=== PATIENT | female | born 1965 | race Caucasian/White ===

== ENCOUNTER 2019-01-02 21:18 | Emergency (ER) | payer BC, SELFPAY ==
[2019-01-02] MEDS ORDERED: AMOX/K CLAV 875 MG TAB ONE (21:55)
[2019-01-02] MEDS ORDERED: TETANUS & DIPHTHERIA TOX,ADULT 0.5 ML VIAL ONE (21:55)
[2019-01-02] MEDS ORDERED: LIDOCAINE 1% MPF 5 ML VIAL ONE (21:57)
--- NOTE | 2019-01-02 21:58 | ER ---
Nurse's Notes [facility] Name: Sofi Mg Age: 53 yrs Sex: Female : 1965 Arrival Date: 01/02/2019 Time: 21:22 Bed 20 Private MD: Diagnosis: Bitten by dog Presentation: 01/02 21:20 Presenting complaint: EMS states: patient had a dog bite on left arm (own dog). the dog rr5 from her neighbor and her dog got into fight she tried to stop them she was bit by her own dog. 21:20 Transition of care: patient was not received from another setting of care. Onset of rr5 symptoms was January 02, 2019. Risk Assessment: Do you want to hurt yourself or someone else? Patient reports no desire to harm self or others. Initial Sepsis Screen: Does the patient meet any 2 criteria? No. Patient's initial sepsis screen is negative. Does the patient have a suspected source of infection? No. Patient's initial sepsis screen is negative. Care prior to arrival: Medication(s) given: toradol. 21:20 Method Of Arrival: EMS: [facility] rr5 21:20 Acuity: FERNANDO 3 rr5 Triage Assessment: 21:20 Bite description: bite sustained to left upper arm is from animal, by a dog, animal rr5 information: vaccination(s) is current. 21:20 General: Appears in no apparent distress. comfortable, Behavior is calm, cooperative, rr5 appropriate for age. 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 - Social history:: Smoking status: Patient/guardian denies using tobacco, Patient/guardian denies using alcohol, street drugs. - Ebola Screening: : Patient negative for fever greater than or equal to 101.5 degrees Fahrenheit, and additional compatible Ebola Virus Disease symptoms Patient denies exposure to infectious person Patient denies travel to an Ebola-affected area in the 21 days before illness onset. Screenin:20 Abuse screen: Denies threats or abuse. Denies injuries from another. Nutritional rr5 screening: No deficits noted. Tuberculosis screening: No symptoms or risk factors identified. Fall Risk None identified. Total Greene Fall Scale indicates No Risk (0-24 pts). Assessment: 21:20 General: Appears in no apparent distress. comfortable, Behavior is calm, cooperative, rr5 appropriate for age. 21:20 Pain: Complains of pain in left upper arm Pain does not radiate. Pain currently is 3 rr5 out of 10 on a pain scale. Quality of pain is described as aching, Pain began suddenly, Is intermittent. Neuro: Level of Consciousness is awake, alert, obeys commands, Oriented to person, place, time, situation, Appropriate for age. Cardiovascular: Capillary refill < 3 seconds Patient's skin is warm and dry. Respiratory: Airway is patent Respiratory effort is even, unlabored, Respiratory pattern is regular, symmetrical. GI: No signs and/or symptoms were reported involving the gastrointestinal system. : No signs and/or symptoms were reported regarding the genitourinary system. EENT: No signs and/or symptoms were reported regarding the EENT system. Derm: Skin is intact, Skin is pink, warm \T\ dry. lacerated wound left upper arm. Musculoskeletal: Capillary refill < 3 seconds, Range of motion: intact in all extremities. Injury Description: Bite sustained to left upper arm caused by a dog, is from animal, was sustained 2-4 hours ago. 21:36 Reassessment: DWAIN lopez informed over the phone for the incident. rr5 22:25 Reassessment: Patient appears in no apparent distress at this time. Patient is alert, rr5 oriented x 3, equal unlabored respirations, skin warm/dry/pink. discharge instruction given and explained without complaints made. Patient states feeling better. Patient states symptoms have improved. Vital Signs: 21:30 BP 108 / 69; Pulse 92; Resp 17; Temp 97; Pulse Ox 98% ; Weight 77.11 kg; Height 5 ft. 3 rr5 in. (160.02 cm); Pain 3/10; 21:55 BP 89 / 53; Pulse 73; Resp 17; Pulse Ox 99% ; rr5 22:08 BP 107 / 63; Pulse 75; Resp 17; Pulse Ox 100% ; Pain 0/10; rr5 22:30 BP 105 / 60; Pulse 70; Resp 16; Pulse Ox 99% on R/A; rr5 21:30 Body Mass Index 30.11 (77.11 kg, 160.02 cm) rr5 21:55 placed on trendelenburg position. rr5 ED Course: 21:20 Arm band placed on. rr5 21:20 Patient has correct armband on for positive identification. Bed in low position. Call rr5 light in reach. 21:22 Patient arrived in ED. rr5 21:27 [facility]C [facility]. kb 21:27 Eric Pendleton MD is Attending Physician. kb 21:30 Triage completed. rr5 21:30 Maintain EMS IV. Dressing intact. Good blood return noted. Site clean \T\ dry. Gauge \T\ rr 5 site: G 18 right AC. 21:35 Baudilio Guillen RN is Primary Nurse. rr5 21:46 Assist provider with laceration repair on left upper inner arm. that was 2.5 cm. or rr5 less using sutures. Set up tray. Performed by Ania CHAHAL Dressed with 4X4s, Kerlix, Neosporin, Patient tolerated well. 22:30 IV discontinued, intact, bleeding controlled, No redness/swelling at site. Pressure rr5 dressing applied. Administered Medications: 21:44 Drug: Tetanus-Diphtheria Toxoid Adult 0.5 ml {[employer]: [employer]. Exp: rr5 09/04/2022. Lot #: [id number]. } Route: IM; Site: right deltoid; 22:25 Follow up: Response: No adverse reaction rr5 21:45 Drug: Lidocaine (1 %) 1 vials {Note: given by ania.} Volume: 20 ml; Route: rr5 Infiltration; 22:25 Follow up: Response: No adverse reaction rr5 21:45 Drug: Augmentin 875 mg Route: PO; rr5 22:25 Follow up: Response: No adverse reaction rr5 Outcome: 21:58 Discharge ordered by . kb 22:35 Discharged to home ambulatory. rr5 22:35 Condition: stable 22:35 Discharge instructions given to patient, family, Instructed on discharge instructions, follow up and referral plans. medication usage, wound care, Demonstrated understanding of instructions, follow-up care, medications, wound care, Prescriptions given X 1. 22:38 Patient left the ED. rr5 Signatures: Ania Salazar FNP-C FNP-Ckb Roque, Raymond RN RN rr5 Corrections: (The following items were deleted from the chart) 21:47 21:46 Assist provider with laceration repair on left upper inner arm. rr5 rr5
--- NOTE | 2019-01-02 21:59 | EDPHYS ---
Physician Documentation [facility] Name: Sofi Mg Age: 53 yrs Sex: Female : 1965 Arrival Date: 01/02/2019 Time: 21:22 Bed 20 Private MD: ED Physician Eric Pendleton HPI: 01/02 21:34 This 53 yrs old Female presents to ER via EMS with complaints of Dog Bite. kb 21:34 The patient was bitten on the left bicep, by a dog, while trying to stop animals from kb fighting, at home. Onset: The symptoms/episode began/occurred just prior to arrival. Animal information: The animal was reported to appear healthy. Animal's vaccinations are up to date. The animal is known and can be quarantined. Secondary to the bite the patient reports an abrasion, a laceration, pain. Associated signs and symptoms: Pertinent positives: erythema at site, pain at site. Severity of symptoms: At their worst the symptoms were mild, in the emergency department the symptoms are unchanged. The patient has not experienced similar symptoms in the past. The patient has not recently seen a physician. Pt reports she was breaking up her dog and the neighbor's dog from fighting and her dog bit her left upper arm. 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 - Social history:: Smoking status: Patient/guardian denies using tobacco, Patient/guardian denies using alcohol, street drugs. - Ebola Screening: : Patient negative for fever greater than or equal to 101.5 degrees Fahrenheit, and additional compatible Ebola Virus Disease symptoms Patient denies exposure to infectious person Patient denies travel to an Ebola-affected area in the 21 days before illness onset. ROS: 21:34 Constitutional: Negative for fever, chills, and weight loss, Cardiovascular: Negative kb for chest pain, palpitations, and edema, Respiratory: Negative for shortness of breath, cough, wheezing, and pleuritic chest pain, Abdomen/GI: Negative for abdominal pain, nausea, vomiting, diarrhea, and constipation, MS/Extremity: Negative for injury and deformity, Neuro: Negative for headache, weakness, numbness, tingling, and seizure. 21:34 Skin: Positive for laceration(s), of the left bicep. Exam: 21:32 Constitutional: This is a well developed, well nourished patient who is awake, alert, kb and in no acute distress. Head/Face: Normocephalic, atraumatic. ENT: Nares patent. No nasal discharge, no septal abnormalities noted. Tympanic membranes are normal and external auditory canals are clear. Oropharynx with no redness, swelling, or masses, exudates, or evidence of obstruction, uvula midline. Mucous membranes moist. Neck: Trachea midline, no thyromegaly or masses palpated, and no cervical lymphadenopathy. Supple, full range of motion without nuchal rigidity, or vertebral point tenderness. No Meningismus. Chest/axilla: Normal chest wall appearance and motion. Nontender with no deformity. No lesions are appreciated. Cardiovascular: Regular rate and rhythm with a normal S1 and S2. No gallops, murmurs, or rubs. Normal PMI, no JVD. No pulse deficits. Respiratory: Lungs have equal breath sounds bilaterally, clear to auscultation and percussion. No rales, rhonchi or wheezes noted. No increased work of breathing, no retractions or nasal flaring. Abdomen/GI: Soft, non-tender, with normal bowel sounds. No distension or tympany. No guarding or rebound. No evidence of tenderness throughout. Back: No spinal tenderness. No costovertebral tenderness. Full range of motion. MS/ Extremity: Pulses equal, no cyanosis. Neurovascular intact. Full, normal range of motion. Neuro: Awake and alert, GCS 15, oriented to person, place, time, and situation. Cranial nerves II-XII grossly intact. Motor strength 5/5 in all extremities. Sensory grossly intact. Cerebellar exam normal. Normal gait. 21:32 Skin: injury, bite(s), superficial, of the left bicep. Vital Signs: 21:30 BP 108 / 69; Pulse 92; Resp 17; Temp 97; Pulse Ox 98% ; Weight 77.11 kg; Height 5 ft. 3 rr5 in. (160.02 cm); Pain 3/10; 21:55 BP 89 / 53; Pulse 73; Resp 17; Pulse Ox 99% ; rr5 22:08 BP 107 / 63; Pulse 75; Resp 17; Pulse Ox 100% ; Pain 0/10; rr5 22:30 BP 105 / 60; Pulse 70; Resp 16; Pulse Ox 99% on R/A; rr5 21:30 Body Mass Index 30.11 (77.11 kg, 160.02 cm) rr5 21:55 placed on trendelenburg position. rr5 Laceration: 21:57 Wound Repair of 3cm ( 1.2in ) subcutaneous laceration to left bicep. Irregularly kb shaped.. Distal neuro/vascular/tendon intact. Anesthesia: Wound infiltrated with 5 mls of 1% lidocaine. Wound prep: Extensive cleansing with hibiclenz by me, Wound irrigation with saline by me. Skin closed with 6 5-0 Prolene using interrupted sutures and sterile technique. Dressed with Neosporin, non-adherent dressing. Patient tolerated well. MDM: 21:28 Patient medically screened. kb 21:32 Data reviewed: vital signs, nurses notes. Data interpreted: Pulse oximetry: on room air kb is 98 %. Interpretation: normal. Counseling: I had a detailed discussion with the patient and/or guardian regarding: the historical points, exam findings, and any diagnostic results supporting the discharge/admit diagnosis, the need for outpatient follow up, a family practitioner, to return to the emergency department if symptoms worsen or persist or if there are any questions or concerns that arise at home. 01/02 21:32 Order name: Prolene, Sutures; Complete Time: 21:45 kb 01/02 21:32 Order name: Dressing - Wound; Complete Time: 21:45 kb 01/02 21:32 Order name: Gloves, Sterile; Complete Time: 21:45 kb 01/02 21:32 Order name: Setup Suture Tray; Complete Time: 21:45 kb Administered Medications: 21:44 Drug: Tetanus-Diphtheria Toxoid Adult 0.5 ml {[employer]: [employer]. Exp: rr5 09/04/2022. Lot #: [id number]. } Route: IM; Site: right deltoid; 22:25 Follow up: Response: No adverse reaction rr5 21:45 Drug: Lidocaine (1 %) 1 vials {Note: given by ania.} Volume: 20 ml; Route: rr5 Infiltration; 22:25 Follow up: Response: No adverse reaction rr5 21:45 Drug: Augmentin 875 mg Route: PO; rr5 22:25 Follow up: Response: No adverse reaction rr5 Disposition: 01/03 05:57 Co-signature as Attending Physician, Eric Pendleton MD I agree with the assessment and kdr plan of care. Disposition: 01/02/19 21:58 Discharged to Home. Impression: Bitten by dog. - Condition is Stable. - Discharge Instructions: Animal Bite, [id number]. - Prescriptions for Augmentin 875- 125 mg Oral Tablet - take 1 tablet by ORAL route every 12 hours for 10 days; 20 tablet. - Medication Reconciliation Form, Thank You Letter, Antibiotic Education, Prescription Opioid Use form. - Follow up: Emergency Department; When: As needed; Reason: Worsening of condition. Follow up: Private Physician; When: 2 - 3 days; Reason: Recheck today's complaints, Continuance of care, Re-evaluation by your physician. Signatures: Ania Salazar, LANGUAGE TRANSLATOR-C LANGUAGE TRANSLATOR-Joseb Eric Pendleton MD MD kdr Baudilio Guillen, RN RN rr5 Corrections: (The following items were deleted from the chart) 01/02 22:38 21:58 01/02/2019 21:58 Discharged to Home. Impression: Bitten by dog. Condition is rr5 Stable. Forms are Medication Reconciliation Form, Thank You Letter, Antibiotic Education, Prescription Opioid Use. Follow up: Emergency Department; When: As needed; Reason: Worsening of condition. Follow up: Private Physician; When: 2 - 3 days; Reason: Recheck today's complaints, Continuance of care, Re-evaluation by your physician. kb
== END 2019-01-02 22:38 | disposition home or self-care (01) ==
LOC: ER 21:18
PROC: 0JQF0ZZ Repair Left Upper Arm Subcutaneous Tissue and Fascia, Open Approach (ICD-10-PCS; principal; 2019-01-02)
DX: S46.222A Laceration of muscle, fascia and tendon of other parts of biceps, left arm, initial encounter (principal); W54.0XXA Bitten by dog, initial encounter; Y93.89 Activity, other specified; Y92.89 Other specified places as the place of occurrence of the external cause; F41.9 Anxiety disorder, unspecified; F32.9 Major depressive disorder, single episode, unspecified; Z23 Encounter for immunization
CPT/HCPCS: 90471; 90714; 99284